=== PATIENT | male | born 1975 | race Caucasian/White ===

== ENCOUNTER 2024-08-13 16:37 | Observation (INO) | payer OTHER, SELFPAY ==
[2024-08-13] VITALS (19 sets, daily range): BP systolic 124–159; BP diastolic 62–97; PULSE 70–89; RESP 14–24; TEMP 35.5–36.8; O2SAT 92–95
--- NOTE | 2024-08-13 17:15 | DI.CT_ITS ---
Exam(s) CT ABDOMEN PELVIS W EXAM: CT ABDOMEN PELVIS W CLINICAL HISTORY: left lower abdominal pain TECHNIQUE: Imaging Protocol: Axial computed tomography images with coronal and sagittal reformatted images were created and reviewed. CONTRAST MATERIAL: Intravenous: Omnipaque 350 Contrast volume:100 mL Oral: No COMPARISON: No exams were available for comparison FINDINGS: ABDOMEN: Lung Bases: There is a small hiatal hernia. There is dependent atelectasis in the lung bases. No fo hanna consolidating infiltrates are present. Liver: There is diffuse decreased attenuation of the liver suggesting fatty infiltration. No measura ble mass. Portal, Superior Mesenteric, and Splenic Veins: Unremarkable. Gallbladder and Biliary Tract: No radiodense calculus or dilation. Pancreas: Normal density, no abnormal calcifications or inflammatory process. Spleen: Normal. Adrenals: No masses seen. Kidneys: Normal size, contour and axis. No radiodense stones or obstructive uropathy. No masses seen. Abdominal Aorta: Abdominal portion non-dilated. Minimal atherosclerotic calcification is present. Bowel: No obstruction or bowel wall thickening. Appendix is unremarkable. Peritoneal Cavity: There is a left retroperitoneal hematoma present. It is overlying the left iliacu s muscle. There is hyper dense material seen suggesting active extravasation (series 10, images 150- 161). No free air. Lymph Nodes: Within normal limits. Bones: Within normal limits for the patient's age. Soft Tissues: There is a fat containing left inguinal hernia. PELVIS: Bladder: Symmetric distention, no gross wall thickening. Reproductive Organs: There is a small left hydrocele. Lymph Nodes: Within normal limits. Bones: Within normal limits for the patient's age. IMPRESSION: 1. There is a left retroperitoneal hemorrhage associated with the left iliacus muscle. There is hype rdense material seen within the hemorrhage consistent with active extravasation/bleeding. 2. Fatty infiltration of the liver. 3. No evidence of bowel obstruction or bowel wall thickening. RADIATION DOSE DELIVERED: 701.04mGy.cm Total DLP DATA REPOSITORY: All CT scans at this facility are submitted to the National Radiology Data Registry (NRDR) Dose Index Registry (DIR) with the [employer] (A[employer]). RADIATION OPTIMIZATION: All CT scans at this facility use at least one of these dose optimization te chniques: automated exposure control; mA and/or kV adjustment per patient size (includes targeted exa ms where dose is matched to clinical indication); or iterative reconstruction.
--- NOTE | 2024-08-13 17:25 | ED.GENADUL_ITS ---
Discharge Plan Disposition Patient Disposition: Admit to [facility] Condition: Stable Discharge Details Chief Complaint: GenMedical Clinical Impression: Retroperitoneal hemorrhage Primary Care Provider: L[facility]Local ED Provider: Eric Monreal [facility] General Mode of arrival: ambulatory . Date/Time Provider Initiated Documentation: 08/13/24 16:41 . Limitations to Documentation: no limitations . Information obtained by: patient . History of Present Illness 48 year old M presents to the emergency department with the chief complaint of left lower abdominal pain, described as severe, with intensity rated at 8. Quality is described as sharp, and is localized to the abdomen. Patient reports no ra diation. and it has been constant. No relieving factors improve symptom(s), No exacerbating factors reported . Patient notes denies chest pain and fever/chills. Patient did receive the following treatments prior to arrival, none Related Data Allergies Allergy/AdvReac Type Severity Reaction Status Date / Time No Known Allergies Allergy Verified 08/13/24 16:52 General Stated Complaint: GenMedical DIEUDONNE: 3 Review of Systems All systems reviewed & are unremarkable except as noted in HPI and below Constitutional Constitutional: Denies chills, Denies fever(s) and Denies weakness Cardiovascular Cardiovascular: Denies chest pain and Denies dyspnea Respiratory Respiratory: Denies cough and Denies dyspnea Gastrointestinal Gastrointestinal: Reports abdominal pain, Reports nausea and Denies vomiting Neurologic Neurologic: Denies weakness Psychiatric Psychiatric: Denies depression Exam Const General: no acute distress Orientation: alert HENAZ Head: normal to inspection Ears: external ears normal General nose exam: external nose normal Mouth: moist mucous membranes Eyes General: appearance normal, both eyes and all related structures Neck Neck: normal visual inspection Resp Effort & Inspection: normal respiratory effort and able to speak in complete sentences Cardio Rate: regular rate GI Palpation: soft, not firm, no guarding and tender Skin General skin exam: no rashes or lesions noted Neuro General: patient alert and patient oriented x3 Extrem General: normal to inspection Psych Mental Status: mental status grossly normal Course Vital Signs Vital signs: Vital Signs Temperature 36.7 C 08/13/24 16:41 Pulse 71 08/13/24 16:41 Respiratory Rate 18 08/13/24 16:41 Blood Pressure 153/97 H 08/13/24 16:41 Pulse Oximetry 94 08/13/24 16:41 Temperature 36.7 C 08/13/24 16:50 Temperature Source Oral 08/13/24 16:50 Pulse 71 08/13/24 16:50 Respiratory Rate 18 08/13/24 16:50 Blood Pressure 153/97 H 08/13/24 16:50 Blood Pressure Position Sitting 08/13/24 16:50 Pulse Oximetry 94 08/13/24 16:50 Oxygen Delivery Method Room Air 08/13/24 16:50 Oxygen Flow Rate 0 08/13/24 16:41 Pain Level 8 08/13/24 16:50 Medical Decision Making 48-year-old male has a history of high cholesterol simvastatin, no prior abdom inal surgeries comes in with 4 to 5 hours of left lower quadrant pain. He said he was skiing and did not fall but had slowly worsening left lower quadrant pain so came here for evaluation. He also notes nausea without vomiting. No fevers or chills, no chest pain. He is stable on arrival, his abdomen is nondistended, he has tenderness in the left lower quadrant, no tenderness elsewhere in the a bdomen. Concern for possible diverticulitis, will check a CBC, CMP, lipase and obtain a CT abdomen pelvis to further evaluate. Patient's lab work shows no emergent findings. His CT is showing a left retroperitoneal hemorrhage involving the adjacent iliac us muscle. Patient is hemodynamically stable. I discussed the case with the general surgeon Dr. Griffin who will plan to admit for serial H&H's. Patient is in agreement with this plan. Differential Diagnosis Differential Diagnosis: diverticulitis, colitis, kidney stone Quality:SDOH Health Related Social Needs: No Data to Display PFSH All Active Problems (Updated 08/13/24 @ 19:22 by Eric Monreal MD) Retroperitoneal hemorrhage (Acute) Social History Smoking/Tobacco Use Status: Never Smoking risk assessment performed?: Yes Alcohol Intake: current Alcohol Intake frequency: holidays/special occasions only Alcohol type: beer Substance use type: does not use PAWSS Have you Been Recently Intoxicated or Drunk Within the Last 30 days?: No Have you Ever Experienced Previous Episodes of Alcohol Withdrawal?: No Have you ever Experienced Withdrawal Seizures?: No Have you ever Experienced Delirium Tremens(DT)s?: No Have you ever undergone Alcohol Rehabilitation Treatment (i.e, inpt ot outpatient treatment programs)?: No Have you ever Experienced Blackouts?: No Have you ever Combined Alcohol with other Downers within the last 90 days?: No Have you ever Combined Alcohol with any other Substance of Abuse during the last 90 days?: No Positive Blood Alcohol level on Presentation? [PCS.BAL]: No Evidence of Increased Autonomic Activity (i.e. HR>120, tremor, sweating, agitation, nausea)?: No Result: 0
[2024-08-13] MEDS: Ondansetron 4 MG/2 ML VIAL IVP (18:24)
[2024-08-13] MEDS: Ketorolac 15 MG/ML VIAL IVP (18:24)
[2024-08-13 18:25] LABS: Abs Immature Grans 0.04 10^3/uL (0.0-0.06); Absolute Basophil Count 0.05 10^3/uL (0.0-0.2); Absolute Eosinophil Count 0.07 10^3/uL (0.0-0.7); Absolute Lymphocyte Count 1.52 10^3/uL (1.2-3.4); Absolute Monocyte Count 0.59 10^3/uL (0.1-0.8); Absolute Neutrophil Count 7.78 10^3/uL (1.2-6.7); Basophils % 0.5 %; Eosinophils % 0.7 %; HCT 39.9 % (40.0-50.0); HGB 14.6 g/dL (13.5-17.5); Immature Grans % 0.4 %; Lymphocytes % 15.1 %; MCH 31.1 pg (27.0-33.0); MCHC 36.6 % (32.0-36.0); MCV 85 fL (80-95); MPV 8.7 fL (8.0-11.0); Monocytes % 5.9 %; Neutrophils % 77.4 %; Platelet Count 231 10^3/uL (130-400); RDW 12.1 % (11.8-14.1); RDW-SD 37.4 fL; WBC 10.05 10^3/uL (4.4-10.8)
[2024-08-13] MEDS: Omnipaque 350 MG/ML 100 ML BTL IJ (18:25)
[2024-08-13] MEDS: Normal Saline - Diluent 50 ML VIAL IJ (18:27)
[2024-08-13 18:45] LABS: ALT 55 U/L (16-63); AST 19 U/L (15-37); Albumin 4.2 g/dL (3.4-5.0); Alkaline Phosphatase 103 U/L (46-116); BUN 12 mg/dL (7-18); Bilirubin, Total 0.89 mg/dL (0.2-1.0); CREATININE 1.1 mg/dL (0.70-1.30); Calcium 9.4 mg/dL (8.5-10.1); Chloride 105 mmol/L (98-107); Estimated GFR 83.32 (mL/min/1.73m2); Glucose 276 mg/dL (74-106); Lipase 21 U/L (<78); Magnesium 1.8 mg/dL (1.8-2.4); Potassium 4.2 mmol/L (3.5-5.1); Sodium 139 mmol/L (136-145); Total Protein 7.2 g/dL (6.4-8.2)
--- NOTE | 2024-08-13 19:10 | DI.VRAD_ITS ---
Addendum created by Laurence Singh MD on 08/13/2024 7:12:37 PM EST: I discussed case findings with Eric Monreal 08/13/2024 7:12 PM EST. Initial report created on 08/13/2024 7:10:20 PM EST: PROCEDURE INFORMATION: Exam: CT Abdomen And Pelvis With Contrast Exam date and time: 08/13/2024 6:22 PM Age: 48 years old Clinical indication: Other: Lower abd pain TECHNIQUE: Imaging protocol: Computed tomography of the abdomen and pelvis with contrast. Contrast material: 350; Contrast volume: 100 ml; Contrast route: INTRAVENOUS (IV); COMPARISON: No relevant prior studies available. FINDINGS: Diaphragm: Small hiatal hernia. Liver: Fatty liver. Gallbladder and biliary ducts: Gallbladder partially contracted. Pancreas: Normal. No ductal dilation. Spleen: Normal. No splenomegaly. Adrenal glands: Normal. No mass. Kidneys and ureters: Normal. No hydronephrosis. Stomach and bowel: Unremarkable. No obstruction. No mucosal thickening. Appendix: No evidence of appendicitis. Intraperitoneal space: Unremarkable. No free air. No significant fluid collection. Retroperitoneal space: There is a left retroperitoneal hemorrhagic collection extending inferiorly to just above the inguinal level. There is no definite psoas involvement although there does appear to be involvement of the iliacus muscle. There is increased central attenuation consistent with acute hemorrhage series 8, image 61 and images 63-64. The collection measures approximately 8.3 x 4.2 x 10.0 cm. Vasculature: Unremarkable. No abdominal aortic aneurysm. Lymph nodes: Unremarkable. No enlarged lymph nodes. Urinary bladder: Unremarkable as visualized. Reproductive: It appears the patient is status post vasectomy. Small left hydrocele. Bones/joints: Unremarkable. No acute fracture. Soft tissues: Small, fat containing left inguinal hernia. IMPRESSION: Left retroperitoneal hemorrhage involving the adjacent iliacus muscle. There is evidence for contrast extravasation consistent with active bleeding. Dictated and Authenticated by: Laurence Singh MD. Orderin Rah Reyes MD
[2024-08-13] MEDS: Normal Saline 1,000 ML 1000 ML IV (19:12)
[2024-08-13 19:45] LABS: HCT 35.9 % (40.0-50.0); HGB 12.9 g/dL (13.5-17.5); MCH 30.9 pg (27.0-33.0); MCHC 35.9 % (32.0-36.0); MCV 86 fL (80-95); MPV 9.1 fL (8.0-11.0); Platelet Count 202 10^3/uL (130-400); RBC 4.17 10^6/uL (4.36-5.78); WBC 10.85 10^3/uL (4.4-10.8)
[2024-08-13 20:02] LABS: Bilirubin Negative (Negative); Blood Negative (Negative); Clarity Clear (Clear); Glucose >=1000 mg/dL (Negative); Ketones Trace mg/dL (Negative); Leukocyte Esterase Negative (Negative); Nitrite Negative (Negative); Specific Gravity 1.015 (1.005-1.025); Urobilinogen 0.2 mg/dL (Up to 0.2); pH 5.5 (5-8)
[2024-08-13 20:10] LABS: Bacteria Negative HPF (Negative); C & S Indicated? No; Casts Negative LPF (Negative); Crystals Negative HPF (Negative); Epithelial Cells Rare HPF (Negative); Mucus Trace (Negative); RBC 0-2 HPF (0-2); WBC Negative HPF (0-5)
[2024-08-13] MEDS: MORPHine 10 MG/ML VIAL 6 MG IVP (20:30)
--- NOTE | 2024-08-13 20:39 | W.PC.ACHO ---
Registration Status: Primary Language: Preferred Language: ED Information & Data Chief Complaint GenMedical 08/13/24 17:27 Triage Note patient state he was skiing 08/13/24 16:41 today stopped at noon time and had lunch then shortly after he started having a left sided sharp. patient state he was thinking its gas pain and he took gas x which did not relieve the pain. he also took 4 advil about 1 hr ago without any relief Most Recent Vital Signs Temperature 36.8 C 08/13/24 19:32 Temperature Source Oral 08/13/24 16:50 Pulse 84 08/13/24 20:01 Pulse 84 08/13/24 20:01 Respiratory Rate 21 08/13/24 20:01 Respiratory Effort Normal, Non-Labored 08/13/24 18:26 Respiratory Depth Normal 08/13/24 18:26 Respiratory Pattern Normal 08/13/24 18:26 Blood Pressure 132/64 08/13/24 20:00 Blood Pressure Mean 82 08/13/24 20:00 Blood Pressure Position Sitting 08/13/24 16:50 Pulse Oximetry 94 08/13/24 20:01 Oxygen Delivery Method Room Air 08/13/24 16:50 Oxygen Flow Rate 0 08/13/24 16:41 Pain Level 8 08/13/24 18:24 Allergies No Known Allergies Allergy (Verified 08/13/24 16:52) Active Medications Generic Name Dose Route Start Last Admin Trade Name Freq PRN Reason Stop Dose Admin Iohexol 100 ml 08/13/24 18:30 08/13/24 18:25 Omnipaque 350 Mg/Ml 100 Ml Btl IJ 09/12/24 23:59 100 ml DIRECTED ANGE Administration Sodium Chloride 50 ml 08/13/24 18:30 08/13/24 18:27 Normal Saline - Diluent 50 Ml Vial IJ 50 ml .FOR DI USE ANGE Administration IV IV Catheter Type [Left Peripheral IV Antecubital] IV Catheter Type [Right Saline Lock Antecubital] IV Catheter Gauge [Right 18 Antecubital] Diagnostics 08/13/24 08/13/24 08/13/24 Range/Units 19:50 19:35 19:29 WBC 10.85 H (4.4-10.8) 10^3/uL RBC 4.17 L (4.36-5.78) 10^6/uL Hgb 12.9 L (13.5-17.5) g/dL Hct 35.9 L (40.0-50.0) % MCV 86 (80-95) fL MCH 30.9 (27.0-33.0) pg MCHC 35.9 (32.0-36.0) % RDW 12.0 (11.8-14.1) % Plt Count 202 (130-400) 10^3/uL MPV 9.1 (8.0-11.0) fL Immature Gran % % Neutrophils % % Lymphocytes % % Monocytes % % Eosinophils % % Basophils % % Nucleated RBC % (0.0-0.3) % Absolute Neutrophils (1.2-6.7) 10^3/uL Absolute Lymphocytes (1.2-3.4) 10^3/uL Absolute Monocytes (0.1-0.8) 10^3/uL Absolute Eosinophils (0.0-0.7) 10^3/uL Absolute Basophils (0.0-0.2) 10^3/uL Sodium (136-145) mmol/L Potassium (3.5-5.1) mmol/L Chloride (98-107) mmol/L Carbon Dioxide (21.0-32.0) mmol/L Anion Gap (3-11) mmol/L BUN (7-18) mg/dL Creatinine (0.70-1.30) mg/dL Est GFR (CKD-EPI 2020) (mL/min/1.73m2) Glucose (74-106) mg/dL Calcium (8.5-10.1) mg/dL Magnesium (1.8-2.4) mg/dL Total Bilirubin (0.2-1.0) mg/dL AST (15-37) U/L ALT (16-63) U/L Alkaline Phosphatase (46-116) U/L Total Protein (6.4-8.2) g/dL Albumin (3.4-5.0) g/dL Lipase (<78) U/L Urine Color Yellow (Yellow) Urine Clarity Clear (Clear) Urine pH 5.5 (5-8) Ur Specific [place] 1.015 (1.005-1.025) Urine Protein Negative (Neg-Trace) mg/dL Urine Ketones Trace H (Negative) mg/dL Urine Blood Negative (Negative) Urine Nitrite Negative (Negative) Urine Bilirubin Negative (Negative) Urine Urobilinogen 0.2 (Up to 0.2) mg/dL Ur Leukocyte Esterase Negative (Negative) Urine RBC 0-2 (0-2) HPF Urine WBC Negative (0-5) HPF Ur Epithelial Cells Rare (Negative) HPF Urine Crystals Negative (Negative) HPF Urine Bacteria Negative (Negative) HPF Urine Casts Negative (Negative) LPF Urine Mucus Trace (Negative) Ur Culture Indicated? No Urine Glucose >=1000 H (Negative) mg/dL ABO/Rh A Positive Antibody Screen NEGATIVE 08/13/24 Range/Units 18:20 WBC 10.05 (4.4-10.8) 10^3/uL RBC 4.70 (4.36-5.78) 10^6/uL Hgb 14.6 (13.5-17.5) g/dL Hct 39.9 L (40.0-50.0) % MCV 85 (80-95) fL MCH 31.1 (27.0-33.0) pg MCHC 36.6 H (32.0-36.0) % RDW 12.1 (11.8-14.1) % Plt Count 231 (130-400) 10^3/uL MPV 8.7 (8.0-11.0) fL Immature Gran % 0.4 % Neutrophils % 77.4 % Lymphocytes % 15.1 % Monocytes % 5.9 % Eosinophils % 0.7 % Basophils % 0.5 % Nucleated RBC % 0.0 (0.0-0.3) % Absolute Neutrophils 7.78 H (1.2-6.7) 10^3/uL Absolute Lymphocytes 1.52 (1.2-3.4) 10^3/uL Absolute Monocytes 0.59 (0.1-0.8) 10^3/uL Absolute Eosinophils 0.07 (0.0-0.7) 10^3/uL Absolute Basophils 0.05 (0.0-0.2) 10^3/uL Sodium 139 (136-145) mmol/L Potassium 4.2 (3.5-5.1) mmol/L Chloride 105 (98-107) mmol/L Carbon Dioxide 25.0 (21.0-32.0) mmol/L Anion Gap 9.0 (3-11) mmol/L BUN 12 (7-18) mg/dL Creatinine 1.1 (0.70-1.30) mg/dL Est GFR (CKD-EPI 2020) 83.32 (mL/min/1.73m2) Glucose 276 H (74-106) mg/dL Calcium 9.4 (8.5-10.1) mg/dL Magnesium 1.8 (1.8-2.4) mg/dL Total Bilirubin 0.89 (0.2-1.0) mg/dL AST 19 (15-37) U/L ALT 55 (16-63) U/L Alkaline Phosphatase 103 (46-116) U/L Total Protein 7.2 (6.4-8.2) g/dL Albumin 4.2 (3.4-5.0) g/dL Lipase 21 (<78) U/L Urine Color (Yellow) Urine Clarity (Clear) Urine pH (5-8) Ur Specific [place] (1.005-1.025) Urine Protein (Neg-Trace) mg/dL Urine Ketones (Negative) mg/dL Urine Blood (Negative) Urine Nitrite (Negative) Urine Bilirubin (Negative) Urine Urobilinogen (Up to 0.2) mg/dL Ur Leukocyte Esterase (Negative) Urine RBC (0-2) HPF Urine WBC (0-5) HPF Ur Epithelial Cells (Negative) HPF Urine Crystals (Negative) HPF Urine Bacteria (Negative) HPF Urine Casts (Negative) LPF Urine Mucus (Negative) Ur Culture Indicated? Urine Glucose (Negative) mg/dL ABO/Rh Antibody Screen Intake and Output - 24 Hour Total 08/13/24 16:37 thru 08/13/24 20:32 Intake Total 1000 Balance 1000 Weight 102.512 kg Intake: IV 1000 Falls Risk Assessment History of Falls No History 08/13/24 18:26 Contributing Factors No Factors 08/13/24 18:26 Ambulatory Aids Independent 08/13/24 18:26 Tubes/Lines None 08/13/24 18:26 Gait Evaluation No gait disturbance 08/13/24 18:26 Cognition No cognitive impairment 08/13/24 18:26 Fall Total Score 0 08/13/24 18:26 Level of Risk Standard/Low Risk 08/13/24 18:26 v v v v v v v v v Sending and/or Receiving Nurses: Please use comment section below to note any information pertinent to the patient hand-off not included above. Information / Comments: retroperitineal hemmorhage, serial H+Hs, otherwise stable. Report received from: Lidia Curtis RN.
--- NOTE | 2024-08-13 20:43 | SCONE_ITS ---
Date of service: 08/13/24 Time of Service: 20:43 Assessment and Plan Assessment and plan (1) Retroperitoneal hemorrhage: Status: Acute Assessment and plan: 48-year-old man with a left?sided retroperitoneal hematoma. He is hemodynamically stable. I recommend bedrest and observation. There is a blush present on imaging but this compartment region is pretty tight and contained in an otherwise healthy man without anticoagulation on board. I suspect this is going to tamponade itself at some point in the near future. Overall plan: Bedrest Serial hemoglobin (recheck in 8 hours) Transfuse as needed for hemoglobin less than 7 - doubtful it will drift that low. He has no coagulopathy to reverse History of Present Illness Narrative: Juan Pablo is a 48-year-old man who was out skiing earlier today and did not quite fall but saved himself from a fall and felt a ripping sensation that was very unusual. He continued skiing and did not think anything about it until a few hours later when he developed severe abdominal pain afterwards. He came to the hospital on a retroperitoneal hematoma with a blush was seen in the left iliac fossa region. [facility] All Active Problems (Updated 08/13/24 @ 19:22 by Eric Monreal MD) Retroperitoneal hemorrhage (Acute) Social History Smoking/Tobacco Use Status: Never Smoking risk assessment performed?: Yes Alcohol Intake: current Alcohol Intake frequency: holidays/special occasions only Alcohol type: beer Substance use type: does not use Housing: house Exam Narrative Exam Narrative: Gen: Non-toxic, comfortable and interactive Neuro: Alert and oriented x3 Psych: Good mood and affect. Good insight and understanding into condition. Chest: Non-labored breathing, no wheezing, no visible shortness of breath. Heart: Regular Abdomen: Soft, nondistended, diffuse mild to moderate tenderness in the left lower quadrant to palpation but the other 3 quadrants are not tender at all. No visible evidence of trauma anywhere. No bruising or ecchymosis. Results Last Vital Signs Temp 98.2 F 08/13/24 19:32 Pulse 86 08/13/24 20:32 Resp 14 08/13/24 20:32 BP 149/83 H 08/13/24 20:31 Pulse Ox 92 08/13/24 20:32 Labs 08/14/24 05:38 08/13/24 18:20 Labs: Laboratory Results - last 24 hr 08/13/24 08/13/24 08/13/24 18:20 19:29 19:35 WBC 10.05 10.85 H RBC 4.70 4.17 L Hgb 14.6 12.9 L Hct 39.9 L 35.9 L MCV 85 86 MCH 31.1 30.9 MCHC 36.6 H 35.9 RDW 12.1 12.0 Plt Count 231 202 MPV 8.7 9.1 Immature Gran % 0.4 Neutrophils % 77.4 Lymphocytes % 15.1 Monocytes % 5.9 Eosinophils % 0.7 Basophils % 0.5 Nucleated RBC % 0.0 Absolute Neutrophils 7.78 H Absolute Lymphocytes 1.52 Absolute Monocytes 0.59 Absolute Eosinophils 0.07 Absolute Basophils 0.05 Sodium 139 Potassium 4.2 Chloride 105 Carbon Dioxide 25.0 Anion Gap 9.0 BUN 12 Creatinine 1.1 Est GFR (CKD-EPI 2020) 83.32 Glucose 276 H Calcium 9.4 Magnesium 1.8 Total Bilirubin 0.89 AST 19 ALT 55 Alkaline Phosphatase 103 Total Protein 7.2 Albumin 4.2 Lipase 21 Urine Color Urine Clarity Urine pH Ur Specific [place] Urine Protein Urine Ketones Urine Blood Urine Nitrite Urine Bilirubin Urine Urobilinogen Ur Leukocyte Esterase Urine RBC Urine WBC Ur Epithelial Cells Urine Crystals Urine Bacteria Urine Casts Urine Mucus Ur Culture Indicated? Urine Glucose ABO/Rh A Positive Antibody Screen NEGATIVE 08/13/24 19:50 WBC RBC Hgb Hct MCV MCH MCHC RDW Plt Count MPV Immature Gran % Neutrophils % Lymphocytes % Monocytes % Eosinophils % Basophils % Nucleated RBC % Absolute Neutrophils Absolute Lymphocytes Absolute Monocytes Absolute Eosinophils Absolute Basophils Sodium Potassium Chloride Carbon Dioxide Anion Gap BUN Creatinine Est GFR (CKD-EPI 2020) Glucose Calcium Magnesium Total Bilirubin AST ALT Alkaline Phosphatase Total Protein Albumin Lipase Urine Color Yellow Urine Clarity Clear Urine pH 5.5 Ur Specific [place] 1.015 Urine Protein Negative Urine Ketones Trace H Urine Blood Negative Urine Nitrite Negative Urine Bilirubin Negative Urine Urobilinogen 0.2 Ur Leukocyte Esterase Negative Urine RBC 0-2 Urine WBC Negative Ur Epithelial Cells Rare Urine Crystals Negative Urine Bacteria Negative Urine Casts Negative Urine Mucus Trace Ur Culture Indicated? No Urine Glucose >=1000 H ABO/Rh Antibody Screen
[2024-08-13] MEDS: Acetaminophen 500 MG TAB 1000 MG PO (21:19)
[2024-08-13] MEDS: Normal Saline Flush 10 ML SYR IVP (21:20)
[2024-08-13] MEDS: HYDROmorphone 2 MG/ML SYR 0.5 MG IVP (21:33)
[2024-08-14] MEDS: Ketorolac 15 MG/ML VIAL IVP ×2 (00:38→07:49)
[2024-08-14] MEDS: Acetaminophen 500 MG TAB 1000 MG PO ×3 (05:34→14:49)
[2024-08-14 06:30] LABS: Abs Immature Grans 0.03 10^3/uL (0.0-0.06); Absolute Basophil Count 0.02 10^3/uL (0.0-0.2); Absolute Eosinophil Count 0.17 10^3/uL (0.0-0.7); Absolute Lymphocyte Count 2.37 10^3/uL (1.2-3.4); Absolute Monocyte Count 0.56 10^3/uL (0.1-0.8); Absolute Neutrophil Count 4.46 10^3/uL (1.2-6.7); Basophils % 0.3 %; Eosinophils % 2.2 %; HCT 34.2 % (40.0-50.0); HGB 11.9 g/dL (13.5-17.5); Immature Grans % 0.4 %; Lymphocytes % 31.1 %; MCH 30.4 pg (27.0-33.0); MCHC 34.8 % (32.0-36.0); MCV 88 fL (80-95); Monocytes % 7.4 %; Neutrophils % 58.6 %; Platelet Count 187 10^3/uL (130-400); RBC 3.91 10^6/uL (4.36-5.78); RDW 12.5 % (11.8-14.1); RDW-SD 39.8 fL; WBC 7.61 10^3/uL (4.4-10.8)
[2024-08-14 07:34] VITALS: BP 136/94; PULSE 68; RESP 15; TEMP 36.9; O2SAT 95
[2024-08-14] MEDS: Normal Saline Flush 10 ML SYR IVP (07:49)
--- NOTE | 2024-08-14 08:29 | PGE_ITS ---
Date of Service Date of service: 08/14/24 Time of Service: 08:29 Assessment and Plan Assessment and plan (1) Retroperitoneal hemorrhage: Status: Acute Assessment and plan: 48-year-old man with a retroperitoneal bleed which was not exactly spontaneous because he recalls a tearing sensation related to a near?fall incident while downhill/alpine skiing. He is not anticoagulated. Clinically he is doing much better today from a pain standpoint which likely reflects successful tamponade of the bleeding and cessation of the stretch/ pressure from the hematoma as it was evolving. Hemoglobin slightly down at 11.9, but probably this is just where he is going to land. Will check a hemoglobin on him later this afternoon and ensure it has truly stabilized. After this he can likely be discharged home with precautions from full?contact sports and/or high?risk activities for the next 6 to 8 weeks. Overall plan: Check hemoglobin at 2?3 PM if stable, discharge, Subjective Subjective Interval history since last seen: Doing well. He had a significant amount of pain in the middle of the night but it has drastically improved. The pain is much less than it was yesterday Hemoglobin has drifted downward slightly but not significantly coming in at 11.9 this morning. Exam Narrative Exam Narrative: Gen: Non-toxic, comfortable and interactive Neuro: Alert and oriented x3 Psych: Good mood and affect. Good insight and understanding into condition. Chest: Non-labored breathing, no wheezing, no visible shortness of breath. Heart: Regular Objective Last Vital Signs Temp 98.4 F 08/14/24 07:34 Pulse 68 08/14/24 07:34 Resp 15 08/14/24 07:34 BP 136/94 H 08/14/24 07:34 Pulse Ox 95 08/14/24 07:34 Laboratory Results - last 24 hr 08/13/24 08/13/24 08/13/24 18:20 19:29 19:35 WBC 10.05 10.85 H RBC 4.70 4.17 L Hgb 14.6 12.9 L Hct 39.9 L 35.9 L MCV 85 86 MCH 31.1 30.9 MCHC 36.6 H 35.9 RDW 12.1 12.0 Plt Count 231 202 MPV 8.7 9.1 Immature Gran % 0.4 Neutrophils % 77.4 Lymphocytes % 15.1 Monocytes % 5.9 Eosinophils % 0.7 Basophils % 0.5 Nucleated RBC % 0.0 Absolute Neutrophils 7.78 H Absolute Lymphocytes 1.52 Absolute Monocytes 0.59 Absolute Eosinophils 0.07 Absolute Basophils 0.05 Sodium 139 Potassium 4.2 Chloride 105 Carbon Dioxide 25.0 Anion Gap 9.0 BUN 12 Creatinine 1.1 Est GFR (CKD-EPI 2020) 83.32 Glucose 276 H Calcium 9.4 Magnesium 1.8 Total Bilirubin 0.89 AST 19 ALT 55 Alkaline Phosphatase 103 Total Protein 7.2 Albumin 4.2 Lipase 21 Urine Color Urine Clarity Urine pH Ur Specific [place] Urine Protein Urine Ketones Urine Blood Urine Nitrite Urine Bilirubin Urine Urobilinogen Ur Leukocyte Esterase Urine RBC Urine WBC Ur Epithelial Cells Urine Crystals Urine Bacteria Urine Casts Urine Mucus Ur Culture Indicated? Urine Glucose ABO/Rh A Positive Antibody Screen NEGATIVE 08/13/24 08/14/24 19:50 05:38 WBC 7.61 RBC 3.91 L Hgb 11.9 L Hct 34.2 L MCV 88 MCH 30.4 MCHC 34.8 RDW 12.5 Plt Count 187 MPV 9.0 Immature Gran % 0.4 Neutrophils % 58.6 Lymphocytes % 31.1 Monocytes % 7.4 Eosinophils % 2.2 Basophils % 0.3 Nucleated RBC % 0.0 Absolute Neutrophils 4.46 Absolute Lymphocytes 2.37 Absolute Monocytes 0.56 Absolute Eosinophils 0.17 Absolute Basophils 0.02 Sodium Potassium Chloride Carbon Dioxide Anion Gap BUN Creatinine Est GFR (CKD-EPI 2020) Glucose Calcium Magnesium Total Bilirubin AST ALT Alkaline Phosphatase Total Protein Albumin Lipase Urine Color Yellow Urine Clarity Clear Urine pH 5.5 Ur Specific [place] 1.015 Urine Protein Negative Urine Ketones Trace H Urine Blood Negative Urine Nitrite Negative Urine Bilirubin Negative Urine Urobilinogen 0.2 Ur Leukocyte Esterase Negative Urine RBC 0-2 Urine WBC Negative Ur Epithelial Cells Rare Urine Crystals Negative Urine Bacteria Negative Urine Casts Negative Urine Mucus Trace Ur Culture Indicated? No Urine Glucose >=1000 H ABO/Rh Antibody Screen PAWSS Have you Been Recently Intoxicated or Drunk Within the Last 30 days?: No Have you Ever Experienced Previous Episodes of Alcohol Withdrawal?: No Have you ever Experienced Withdrawal Seizures?: No Have you ever Experienced Delirium Tremens(DT)s?: No Have you ever undergone Alcohol Rehabilitation Treatment (i.e, inpt ot outpatient treatment programs)?: No Have you ever Experienced Blackouts?: No Have you ever Combined Alcohol with other Downers within the last 90 days?: No Have you ever Combined Alcohol with any other Substance of Abuse during the last 90 days?: No Positive Blood Alcohol level on Presentation? [PCS.BAL]: Unable to Obtain Evidence of Increased Autonomic Activity (i.e. HR>120, tremor, sweating, agitation, nausea)?: No Result: 0 Time Spent with Patient Time Spent with Patient: <25 minutes Time was spent: preparing to see the patient(eg.review tests), obtaining and/or reviewing separately otained hiistory, ordering medications,tests, procedures, indepentently interpreting results, counseling the patient and care coordination
--- NOTE | 2024-08-14 08:58 | NUR.NOTE ---
patient AxOx4 this shift, reports 2/10 pain to LLQ, no distention noted, mild rigidity and tenderness to palpation. Given prn meds. All other systems WNL, tolerating diet and ambulation, H/H this AM 11. next one at 1400. Pending MD plan of care, poss d/c if stable H/H this afternoon. Pt aware of this plan. Nursing Note:
--- NOTE | 2024-08-14 10:09 | PDOC.CMIN ---
Date of service: 08/14/24 Time of Service: 10:09 Care Management Initial Assmt Initial Assessment Reason for Hospitalization: retroperitoneal bleed Functional Status/Living Situation Town of Residence: [place] Resides with: Spouse ( Heather) Significant Other/Family: Out of area (from [facility]) Employment Status: Employed Instrumental Activities of Daily Living (ADLs): Independent Medications Medication Management: No Issues/Barriers identified Physical Functioning/Mobility Assistive Device: none Advance Directives Advance Directives: Do you have an Advance Directive: N 08/13/24 16:51 AD On File at [facility]: N 08/13/24 16:51 Date Asked 08/13/24 08/13/24 16:51 AD Date Reviewed COLST On File at [facility] COLST Date Scanned Code Status Resuscitation Status Full Code Portal Pt does not currently have a portal and education provided: No Portal Education: Other (lives out of state) Insurance Coverage/Financial Issues Insurance: [employer] Care Team Visit Care Team Role Provider Type Bernice Morales NP NURSE PRACTITIONER Local No Primary Care Provider NON-[facility] STAFF PHYSICIAN Eric Monreal MD Emergency Provider [facility] STAFF PHYSICIAN Jeff Griffin MD Admit Provider [facility] STAFF PHYSICIAN Attending Provider Discharge Potential Discharge Needs: PCP F/U Appt Anticipated Barriers to Discharge: None Identified Patient/Family Education Needs: Review discharge instructions, discuss Ask Me Three Transportation: Private vehicle Plan: Anticipate Juan Pablo will be discharged home with no new services when medically cleared. He will follow up with his PCP and plan of aare and transport via private vehicle with his . CM will follow and continue to support dischasrge planning efforts. Social Determinants of Health Screening Social Determinants of Health last assessed: 08/14/24 Will the Patient Participate in the Screening?: Yes Do you worry about having a steady place to live?: no Problems where you live: no known problems In the past 12 months, have you had to go without electric, gas, oil or water in your home?: no Have you or anyone in your house had to go without enough food to eat?: no Has lack of transportation kept you from medical appointments or from doing things needed for daily living?: no Has anyone in your life made you feel unsafe or unsupported?: no How hard is it for you to pay for the very basics like food, housing, medical care, and heating? Would you say it is:: Not hard at all Do you want help finding or keeping work or a job?: I do not need or want help If for any reason you need help with day-to-day activities such as bathing, preparing meals, shopping, managing finances, etc., do you get the help you need?: I don?t need any help How often do you feel lonely or isolated from those around you?: Never Do you speak a language other than Yak[place] at home?: No Does the patient want assistance with any of the above?: No PFSH All Active Problems (Updated 08/13/24 @ 19:22 by Eric Monreal MD) Retroperitoneal hemorrhage (Acute) Social History Smoking/Tobacco Use Status: Never Smoking risk assessment performed?: Yes Alcohol Intake: current Alcohol Intake frequency: holidays/special occasions only Alcohol type: beer Substance use type: does not use Housing: house
--- NOTE | 2024-08-14 13:46 | NUR.NOTE ---
patient pending repeat H/H at 1400, pending results will d/c to home vs repeat another H/H per MD Chase who spoke to pt and family at bedside. Nursing Note:
[2024-08-14 14:52] LABS: HCT 31.9 % (40.0-50.0); HGB 11.3 g/dL (13.5-17.5)
[2024-08-14 15:13] VITALS: BP 129/75; PULSE 68; RESP 16; TEMP 36.5; O2SAT 93
--- NOTE | 2024-08-14 15:54 | DSE_ITS ---
Date of service: 08/14/24 Time of Service: 15:54 DS: Diagnosis Discharge Diagnosis (1) Retroperitoneal hemorrhage: Status: Acute Asessment and Plan: 48-year-old man who had a self?contained retroperitoneal hematoma after skiing. Hemodynamically stable. Hemoglobin stable more than 24 hours after the injury. His subjective complaints of pain have drastically improved and are almost gone. I gave him specific instructions about avoiding contact sports/activities including avoiding any more skiing for the rest of the year. He can follow-up with his PCP in [place]. I gave him clear instructions to go to the nearest emergency department if he develops recurrent/worsening pain and/or any changes in mental status and hemodynamics. Discharge Plan Disposition Patient Disposition: Home Condition: Stable Condition: Stable Discharge Details Reason For Visit: Retroperitoneal Hemorrhage Admit Date/Time: 08/13/24 19:23 Admit Provider: Jeff Griffin Attending Provider: Jeff Griffin [facility] Course: 48-year-old man presented with abdominal pain and was found to have a retroperitoneal hemorrhage after an incident skiing. He was admitted to the hospital for observation and serial hemoglobin monitoring. On the day after his admission his hemoglobin had stabilized and all of his subjective complaints and pain had mostly normalized and gone away. He was discharged home and will follow-up with his PCP in [place]. Home Meds and New Rx's Prescriptions: No Action simvastatin 40 mg tablet 40 mg PO ONCE Patient Comments: TAKE 1 TABLET BY MOUTH EVERY DAY Discharge Instructions Additional Instructions: See your regular doctor sometime later this week or early next week in [place]. If you experience any shortness of breath, difficulty breathing, changes in mental status or fainting, go to the nearest emergency department. If the abdominal pain comes back or starts to worsen, go to the nearest emergency department. No contact sports or strenuous activities for the next 6 to 8 weeks. Activity:: See above instructions Equipment/Supplies:: No Equipment Needed Diet:: As Tolerated DS: Summary Time Spent with Patient providing and/or coordinating discharge services: Greater than 30 minutes Status at Discharge Functional status at discharge: independent ambulation Overall status at discharge: patient is progressing back to baseline Mental Status: mental status grossly normal Speech and Movement: speech and movement normal Mood: congruent mood Affect: normal affect Quality:SDOH Health Related Social Needs: No Data to Display Exam Psych Mental Status: mental status grossly normal Speech and Movement: speech and movement normal Mood: congruent mood Affect: normal affect DS: Data Vitals/I&O Vitals and I&O: Vital Signs Temperature 97.7 F 08/14/24 15:13 Temperature Source Temporal Artery Scan 08/14/24 15:13 Pulse 68 08/14/24 15:13 Pulse Rhythm Regular 08/13/24 20:53 Pulse 86 08/13/24 20:32 Respiratory Rate 16 08/14/24 15:13 Respiratory Effort Normal 08/13/24 20:53 Respiratory Depth Normal 08/13/24 20:53 Respiratory Pattern Normal 08/13/24 20:53 Blood Pressure 129/75 08/14/24 15:13 Blood Pressure Mean 98 08/13/24 20:31 Blood Pressure Position Sitting 08/13/24 16:50 Pulse Oximetry 93 08/14/24 15:13 Oxygen Delivery Method Room Air 08/14/24 15:13 Oxygen Flow Rate 0 08/14/24 15:13 Pain Level 3 08/14/24 15:13 Intake & Output 08/13/24 08/14/24 08/14/24 23:59 11:59 23:59 Intake Total 1000 / 1000 480 / 480 Balance 1000 / 1000 480 / 480 Weight 226 lb Intake: IV 1000 / 1000 Oral 480 / 480 Other: Urine Color Yellow Urine Appearance Clear Urine Odor None Comment pt reports x1 urine pT reports he has voided independently. Data Completed and Pending Labs on day of discharge: Labs from last 24 hours 08/14/24 08/14/24 08/13/24 14:43 05:38 19:50 WBC 7.61 RBC 3.91 L Hgb 11.3 L 11.9 L Hct 31.9 L 34.2 L MCV 88 MCH 30.4 MCHC 34.8 RDW 12.5 Plt Count 187 MPV 9.0 Immature Gran % 0.4 Neutrophils % 58.6 Lymphocytes % 31.1 Monocytes % 7.4 Eosinophils % 2.2 Basophils % 0.3 Nucleated RBC % 0.0 Absolute Neutrophils 4.46 Absolute Lymphocytes 2.37 Absolute Monocytes 0.56 Absolute Eosinophils 0.17 Absolute Basophils 0.02 Sodium Potassium Chloride Carbon Dioxide Anion Gap BUN Creatinine Est GFR (CKD-EPI 2020) Glucose Calcium Magnesium Total Bilirubin AST ALT Alkaline Phosphatase Total Protein Albumin Lipase Urine Color Yellow Urine Clarity Clear Urine pH 5.5 Ur Specific [place] 1.015 Urine Protein Negative Urine Ketones Trace H Urine Blood Negative Urine Nitrite Negative Urine Bilirubin Negative Urine Urobilinogen 0.2 Ur Leukocyte Esterase Negative Urine RBC 0-2 Urine WBC Negative Ur Epithelial Cells Rare Urine Crystals Negative Urine Bacteria Negative Urine Casts Negative Urine Mucus Trace Ur Culture Indicated? No Urine Glucose >=1000 H ABO/Rh Antibody Screen 08/13/24 08/13/24 08/13/24 19:35 19:29 18:20 WBC 10.85 H 10.05 RBC 4.17 L 4.70 Hgb 12.9 L 14.6 Hct 35.9 L 39.9 L MCV 86 85 MCH 30.9 31.1 MCHC 35.9 36.6 H RDW 12.0 12.1 Plt Count 202 231 MPV 9.1 8.7 Immature Gran % 0.4 Neutrophils % 77.4 Lymphocytes % 15.1 Monocytes % 5.9 Eosinophils % 0.7 Basophils % 0.5 Nucleated RBC % 0.0 Absolute Neutrophils 7.78 H Absolute Lymphocytes 1.52 Absolute Monocytes 0.59 Absolute Eosinophils 0.07 Absolute Basophils 0.05 Sodium 139 Potassium 4.2 Chloride 105 Carbon Dioxide 25.0 Anion Gap 9.0 BUN 12 Creatinine 1.1 Est GFR (CKD-EPI 2020) 83.32 Glucose 276 H Calcium 9.4 Magnesium 1.8 Total Bilirubin 0.89 AST 19 ALT 55 Alkaline Phosphatase 103 Total Protein 7.2 Albumin 4.2 Lipase 21 Urine Color Urine Clarity Urine pH Ur Specific [place] Urine Protein Urine Ketones Urine Blood Urine Nitrite Urine Bilirubin Urine Urobilinogen Ur Leukocyte Esterase Urine RBC Urine WBC Ur Epithelial Cells Urine Crystals Urine Bacteria Urine Casts Urine Mucus Ur Culture Indicated? Urine Glucose ABO/Rh A Positive Antibody Screen NEGATIVE PFSH All Active Problems (Updated 08/13/24 @ 19:22 by Eric Monreal MD) Retroperitoneal hemorrhage (Acute) Social History Smoking/Tobacco Use Status: Never Smoking risk assessment performed?: Yes Alcohol Intake: current Alcohol Intake frequency: holidays/special occasions only Alcohol type: beer Substance use type: does not use Housing: house Time Spent with Patient Time Spent with Patient: 45-69 minutes Time was spent: preparing to see the patient(eg.review tests), obtaining and/or reviewing separately otained hiistory, indepentently interpreting results, counseling the patient and care coordination
--- NOTE | 2024-08-14 16:14 | CMPROGNOTE_ITS ---
Date of service: 08/14/24 Time of Service: 16:14 Care Management Progress Note Progress Note Text Progress Note Text: Regan was admitted last evening, 08/13/24, with a retroperitoneal hematoma after skiing. It resolved spontaneously and his pain is well managed. Regan has remained hemodynamically stable and will be discharged home later today. He will follow up with his PCP in [facility] and his will drive him home. No new services are needed. Discharge Potential Discharge Needs: PCP F/U Appt Anticipated Barriers to Discharge: None Identified Patient/Family Education Needs: Review discharge instructions, discuss Ask Me Three Transportation: Private vehicle Social Determinants of Health Screening Social Determinants of Health last assessed: 08/14/24 Will the Patient Participate in the Screening?: Yes Do you worry about having a steady place to live?: no Problems where you live: no known problems In the past 12 months, have you had to go without electric, gas, oil or water in your home?: no Have you or anyone in your house had to go without enough food to eat?: no Has lack of transportation kept you from medical appointments or from doing things needed for daily living?: no Has anyone in your life made you feel unsafe or unsupported?: no How hard is it for you to pay for the very basics like food, housing, medical care, and heating? Would you say it is:: Not hard at all Do you want help finding or keeping work or a job?: I do not need or want help If for any reason you need help with day-to-day activities such as bathing, preparing meals, shopping, managing finances, etc., do you get the help you need?: I don?t need any help How often do you feel lonely or isolated from those around you?: Never Do you speak a language other than [place] at home?: No Does the patient want assistance with any of the above?: No
--- NOTE | 2024-08-14 16:44 | NUR.NOTE ---
patient refused x1 order for zocor, says he will take tonight at home since he has prescription for it. Nursing Note:
== END 2024-08-14 16:47 | disposition home or self-care (01) ==
LOC: ER 19:22 → MS 20:41
PROVIDERS: Admitting Provider Student in an Organized Health Care Education/Training Program; Emergency Provider Emergency Medicine; Visit Provider Student in an Organized Health Care Education/Training Program
DX: S36.892A Contusion of other intra-abdominal organs, initial encounter (principal); X50.0XXA Overexertion from strenuous movement or load, initial encounter; Y93.23 Activity, snow (alpine) (downhill) skiing, snowboarding, sledding, tobogganing and snow tubing
CPT/HCPCS: 36415; 80053; 83690; 85027; 86850; 86900; 86901; 96361; 96374; 96375; 96376; 99285; 74177; 81003; 81015; 83735; 85014; 85018; 85025; G0378; J1171; J1885; J2270; J2405; J3490